=== PATIENT | male | born 2000 | race Caucasian/White ===

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

== ENCOUNTER → 2021-09-02 | Outpatient (CLI) | payer BC ==
[2021-09-02 15:22] LABS: Basophils # (A) 0.04 X 10*3/uL (0.00-0.10); Basophils % (A) 0.7 %; Eosinophils # (A) 0.12 X 10*3/uL (0.04-0.35); Eosinophils % (A) 2.1 %; HCT 47.4 % (39.6-50.0); HGB 15.1 g/dL (13.0-17.0); Immature Grans, Automated 0.2 %; Lymphocytes # (A) 1.65 X 10*3/uL (0.90-5.00); Lymphocytes % (A) 28.3 %; MCH 29.5 pg (27.0-32.0); MCHC 31.9 g/dL (32.0-37.0); MCV 92.8 fL (80.0-97.0); Mean Platelet Volume 11.6 fL (9.5-12.2); Monocytes # (A) 0.52 X 10*3/uL (0.20-1.00); Monocytes % (A) 8.9 %; NRBC Per 100 WBC 0 /100 WBCS (0.0-0.0); Neutrophils % (A) 59.8 %; Platelet Count 243 X 10*3/uL (140-440); RBC 5.11 X 10*6/uL (4.40-5.60); WBC 5.84 X 10*3/uL (4.50-10.00)
[2021-09-02 16:56] LABS: Triglycerides 37.6 mg/dL (0.00-149.00)
[2021-09-02 17:07] LABS: Chol/HDL Ratio 3.31 Ratio; LDL Cholesterol,Direct Reflex 67.1 mg/dL (0.00-129.00)
== END | disposition home or self-care (01) ==
LOC: LABWHC1 08:10
PROVIDERS: ATTEND Pediatrics
DX: R74.01 Elevation of levels of liver transaminase levels (principal); R45.4 Irritability and anger
CPT/HCPCS: 36415; 80061; 82947; 82977; 83036; 83721; 84450; 84460; 84520; 85025